=== PATIENT | male | born 1955 | race Caucasian/White ===

== ENCOUNTER 2016-12-16 11:21 | Emergency (ER) | payer OTHER | END 2016-12-16 13:43 | disposition home or self-care (01) | LOC: FER 11:21 | DX: S91.302A Unspecified open wound, left foot, initial encounter (principal); Z79.01 Long term (current) use of anticoagulants; Z89.022 Acquired absence of left finger(s) | CPT/HCPCS: 99283 ==

== ENCOUNTER 2016-12-18 08:41 | Emergency (ER) | payer OTHER | END 2016-12-18 09:34 | disposition home or self-care (01) | LOC: FER 08:41 | DX: M96.830 Postprocedural hemorrhage of a musculoskeletal structure following a musculoskeletal system procedure (principal); I48.91 Unspecified atrial fibrillation; I49.3 Ventricular premature depolarization; Z79.01 Long term (current) use of anticoagulants; Z87.891 Personal history of nicotine dependence; Z95.5 Presence of coronary angioplasty implant and graft; Z89.412 Acquired absence of left great toe | CPT/HCPCS: 99283 ==

== ENCOUNTER 2020-09-30 11:02 | Inpatient (IN) | payer OTHER ==
[~2020-09-30 11:02] MED LIST: KEFLEX500 MG PO
[2020-09-30 13:03] LABS: BASOPHIL 0.2 % (0-2); EOSINOPHIL 0.1 % (0-7); HCT 38.9 % (42.0-52.0); HGB 14.1 g/dl (13.2-18.0); LYMPHOCYTE 13.2 % (15-48); MCH 32.1 pg (25.0-31.0); MCHC 36.2 g/dL (32.0-36.0); MCV 88.6 fL (78.0-100.0); MONOCYTE 4.8 % (0-12); MPV 9.2 fL (6.0-9.5); NEUTROPHIL 80.8 % (41-80); NRBC 0; PLT 185 K/uL (150-400); RBC 4.39 M/uL (4.70-6.00); RDW 12.3 % (11.5-14.0); WBC 8.9 K/uL (4.0-10.5)
[2020-09-30 13:20] LABS: ALBUMIN 3.4 g/dL (3.4-5.0); BILIRUBIN - TOTAL 0.9 mg/dL (0.2-1.0); BUN/CREAT RATIO (CALC) 14.9 RATIO; CREATININE 0.47 mg/dL (0.67-1.17); GLOBULIN (CALCULATION) 3.5 g/dL; POTASSIUM 4.8 mmol/L (3.5-5.1); TOTAL PROTEIN 6.9 g/dL (6.4-8.2)
[2020-09-30 13:24] LABS: BILIRUBIN NEGATIVE (NEGATIVE); BLOOD 1+ Ery/uL (NEGATIVE); CLARITY CLEAR (CLEAR); COLOR YELLOW (YELLOW); GLUCOSE (U) NORMAL (NORMAL); LEUKOCYTES NEGATIVE Leu/uL (NEGATIVE); NITRITE NEGATIVE (NEGATIVE); PROTEIN 2+ mg/dL (NEGATIVE); SPECIFIC GRAVITY 1.015 (1.001-1.030); UROBILINOGEN 0.2 mg/dL (0.2-1.0); pH 5.5 (5.0-9.0)
[2020-09-30 13:41] LABS: BACTERIA TRACE; SPERM PRESENT; URINARY RBC RARE
[2020-09-30] MEDS ORDERED: VITAMIN E400 UNI1 PO (15:12)
[2020-09-30] MEDS ORDERED: XARELTO10 MG PO (15:13)
[2020-09-30] MEDS ORDERED: COREG25 MG PO (15:13)
[2020-09-30] MEDS ORDERED: GABAPENTIN600 MG PO (15:16)
[2020-09-30] MEDS ORDERED: MULTI-VITAMIN1 EACH PO (15:16)
[2020-09-30] MEDS ORDERED: ATORVASTATIN CA40 MG PO (15:17)
[2020-09-30] MEDS ORDERED: DILTIAZEM 12HR120 MG PO (15:17)
--- NOTE | 2020-09-30 16:34 | NUR ---
DR GUZMAN CALLED STATES HE OR JOSE MIGUEL WILL BE IN TO SEE PATIENT, DISCUSS CARDIOLOGY CONSULT WITH HOPSITALIST FOR WEEKEND, PT WILL NEED TO BE OFF XARELTO AND MAY BE SATURDAY UNTIL SURGERY FOR REPAIR DR GUZMAN AND HOSPITALIST ALSO NOTIFIED PATIENT STATES RECOVERING ALCOHOLIC BUT DRINKS "3-4 BEERS A DAY"
[2020-10-02 03:52] LABS: BASOPHIL 0.3 % (0-2); EOSINOPHIL 1.6 % (0-7); HCT 35.2 % (42.0-52.0); HGB 12.2 g/dl (13.2-18.0); LYMPHOCYTE 27.2 % (15-48); MCH 32.1 pg (25.0-31.0); MCHC 34.7 g/dL (32.0-36.0); MCV 92.6 fL (78.0-100.0); MONOCYTE 15.3 % (0-12); MPV 9.3 fL (6.0-9.5); NEUTROPHIL 55.1 % (41-80); NRBC 0; PLT 144 K/uL (150-400); RDW 12.6 % (11.5-14.0); WBC 6.1 K/uL (4.0-10.5)
--- NOTE | 2020-10-02 04:03 | NUR ---
2200 SPOKE TO MICHAEL MILTON ABOUT PATIENTS BLOOD PRESSURE AUTOMATIC WAS 86/60 MANUAL PRESSURE WAS 102/78 PATIENT WAS ALSO IN PAIN AND WAS GIVEN 2 PERCOCET AT THIS TIME. ASKED TO SEE ABOUT HOLDING COREG AND MICHAEL MILTON STATES TO HOLD COREG AT THIS TIME
[2020-10-02 04:09] LABS: BUN/CREAT RATIO (CALC) 23.3 RATIO; CREATININE 0.73 mg/dL (0.67-1.17); POTASSIUM 4.2 mmol/L (3.5-5.1)
[2020-10-03 05:43] LABS: BASOPHIL 0.6 % (0-2); EOSINOPHIL 2.3 % (0-7); HCT 33.4 % (42.0-52.0); HGB 11.4 g/dl (13.2-18.0); LYMPHOCYTE 25.2 % (15-48); MCH 31.9 pg (25.0-31.0); MCHC 34.1 g/dL (32.0-36.0); MCV 93.6 fL (78.0-100.0); MONOCYTE 11.8 % (0-12); MPV 9.6 fL (6.0-9.5); NEUTROPHIL 59.7 % (41-80); NRBC 0; PLT 127 K/uL (150-400); RBC 3.57 M/uL (4.70-6.00); RDW 12.5 % (11.5-14.0); WBC 5.2 K/uL (4.0-10.5)
[2020-10-03 06:07] LABS: BUN/CREAT RATIO (CALC) 24.2 RATIO; CREATININE 0.66 mg/dL (0.67-1.17); MAGNESIUM 1.4 mg/dL (1.8-2.4); POTASSIUM 4.2 mmol/L (3.5-5.1)
[2020-10-03 08:15] LABS: INR 1.3 (0.9-1.2); PROTHROMBIN TIME 15.4 SECONDS (11.4-13.6)
[2020-10-03 08:16] LABS: PTT 37.7 SECONDS (22.2-34.7)
[2020-10-03 10:06] LABS: BILIRUBIN NEGATIVE (NEGATIVE); BLOOD NEGATIVE Ery/uL (NEGATIVE); CLARITY CLEAR (CLEAR); COLOR YELLOW (YELLOW); GLUCOSE (U) NORMAL (NORMAL); LEUKOCYTES NEGATIVE Leu/uL (NEGATIVE); NITRITE NEGATIVE (NEGATIVE); PROTEIN TRACE (LOW) mg/dL (NEGATIVE); UROBILINOGEN 0.2 mg/dL (0.2-1.0)
--- NOTE | 2020-10-03 15:31 | NUR ---
PT LIVES WITH SPOUSE; ASSIST AT THIS TIME; PLEASE ADVISE OF DISCHARGE NEEDS;
--- NOTE | 2020-10-03 15:52 | NUR ---
MET WITH PT AND SPOUSE. HE CHOSE [facility] FOR PT./OT AND NURSING ASSESSMENT. AFFLIATIONS EXPLAINED. PT. HAS ALETHA CISNEROS, 09/26.
[2020-10-04 05:56] LABS: BASOPHIL 0 % (0-2); EOSINOPHIL 0 % (0-7); HCT 30.3 % (42.0-52.0); HGB 10.2 g/dl (13.2-18.0); LYMPHOCYTE 8.3 % (15-48); MCH 31.8 pg (25.0-31.0); MCHC 33.7 g/dL (32.0-36.0); MCV 94.4 fL (78.0-100.0); MONOCYTE 10.2 % (0-12); MPV 9.7 fL (6.0-9.5); NRBC 0; PLT 132 K/uL (150-400); RBC 3.21 M/uL (4.70-6.00); RDW 12.4 % (11.5-14.0); WBC 7.5 K/uL (4.0-10.5)
[2020-10-04 06:27] LABS: BUN/CREAT RATIO (CALC) 29.4 RATIO; CREATININE 0.51 mg/dL (0.67-1.17); POTASSIUM 4.4 mmol/L (3.5-5.1)
[2020-10-05 05:45] LABS: BASOPHIL 0.2 % (0-2); HCT 27.6 % (42.0-52.0); HGB 9.5 g/dl (13.2-18.0); LYMPHOCYTE 21.8 % (15-48); MCH 32.5 pg (25.0-31.0); MCHC 34.4 g/dL (32.0-36.0); MCV 94.5 fL (78.0-100.0); MONOCYTE 16.4 % (0-12); MPV 9.8 fL (6.0-9.5); NEUTROPHIL 60.4 % (41-80); NRBC 0; PLT 123 K/uL (150-400); RBC 2.92 M/uL (4.70-6.00); RDW 12.5 % (11.5-14.0)
[2020-10-05 06:01] LABS: BUN/CREAT RATIO (CALC) 32.1 RATIO; CREATININE 0.56 mg/dL (0.67-1.17); MAGNESIUM 1.4 mg/dL (1.8-2.4); POTASSIUM 4.4 mmol/L (3.5-5.1)
[2020-10-05] MEDS ORDERED: MAG-OXIDE 400M400 MG PO (09:19)
[2020-10-05] MEDS ORDERED: PANTOPRAZOLE SO40 MG PO (09:19)
[2020-10-05] MEDS ORDERED: FEOSOL325 MG PO (09:19)
[2020-10-05] MEDS ORDERED: OXYCODONE-ACET1 EAC1 PO (09:19)
== END 2020-10-05 12:00 | disposition home health service (06) | DRG 522 ==
LOC: FER 11:02 → FMS 13:01
PROVIDERS: Emergency Medicine; Legal Medicine; Nurse Practitioner Adult Health; ADMIT Internal Medicine
PROC: 0SRB04A Replacement of Left Hip Joint with Ceramic on Polyethylene Synthetic Substitute, Uncemented, Open Approach (ICD-10-PCS; principal; 2020-10-03 10:30)
DX: S72.012A Unspecified intracapsular fracture of left femur, initial encounter for closed fracture (principal); I48.20 Chronic atrial fibrillation, unspecified; E87.1 Hypo-osmolality and hyponatremia; D62 Acute posthemorrhagic anemia; W01.0XXA Fall on same level from slipping, tripping and stumbling without subsequent striking against object, initial encounter; Y92.008 Other place in unspecified non-institutional (private) residence as the place of occurrence of the external cause; Z79.01 Long term (current) use of anticoagulants; F10.10 Alcohol abuse, uncomplicated; G62.9 Polyneuropathy, unspecified; I73.9 Peripheral vascular disease, unspecified; J44.9 Chronic obstructive pulmonary disease, unspecified; I10 Essential (primary) hypertension; E83.42 Hypomagnesemia; K21.9 Gastro-esophageal reflux disease without esophagitis; F17.210 Nicotine dependence, cigarettes, uncomplicated; Z89.422 Acquired absence of other left toe(s); Z89.421 Acquired absence of other right toe(s); Z79.899 Other long term (current) drug therapy; Z20.822 Contact with and (suspected) exposure to COVID-19
CPT/HCPCS: 36415; 71045; 73501; 73502; 73700; 76000; 80048; 80053; 81001; 81003; 83735; 85025; 85610; 85730; 86850; 86900; 86901; 88305; 88342; 93005; 94010; 94762; 97110; 97116; 97162; 97166; 97530-GP; 97535; C1713; C1776; J0171; J0697; J1100; J1170; J1885; J2250; J2270; J2405; J2704; J2710; J2795; J3010; J3370; J7050; J7120; U0002

== ENCOUNTER 2021-11-24 18:49 | Emergency (ER) | payer OTHER ==
[~2021-11-24 18:49] MED LIST changes: +ATORVASTATIN CA40 MG PO; +COREG25 MG PO; +DILTIAZEM 12HR120 MG PO; +FEOSOL325 MG PO; +GABAPENTIN600 MG PO; +MAG-OXIDE 400M400 MG PO; +MULTI-VITAMIN1 EACH PO; +OXYCODONE-ACET1 EAC1 PO; +PANTOPRAZOLE SO40 MG PO; +VITAMIN E400 UNI1 PO; +XARELTO10 MG PO
[2021-11-24 19:51] LABS: BASOPHIL 0.7 % (0-2); HCT 41.4 % (42.0-52.0); HGB 14.5 g/dl (13.2-18.0); LYMPHOCYTE 29.2 % (15-48); MCH 31.5 pg (25.0-31.0); MCV 89.8 fL (78.0-100.0); MONOCYTE 11.7 % (0-12); MPV 8.6 fL (6.0-9.5); NEUTROPHIL 56.5 % (41-80); NRBC 0; PLT 173 K/uL (150-400); RBC 4.61 M/uL (4.70-6.00); RDW 13.5 % (11.5-14.0); WBC 5.8 K/uL (4.0-10.5)
[2021-11-24 20:08] LABS: BUN/CREAT RATIO (CALC) 13.2 RATIO; CREATININE 0.53 mg/dL (0.67-1.17); POTASSIUM 3.6 mmol/L (3.5-5.1)
== END 2021-11-24 21:35 | disposition home or self-care (01) ==
LOC: FER 18:49
PROVIDERS: Nurse Practitioner Family
DX: R04.0 Epistaxis (principal); I10 Essential (primary) hypertension; Z28.310 Unvaccinated for COVID-19
CPT/HCPCS: 36415; 80048; 85025; 99283

== ENCOUNTER 2022-02-02 10:44 | Day surgery (SDCO) | payer OTHER ==
[~2022-02-02] VITALS: Ht 182.9 cm; Wt 70.0 kg
[2022-02-02 14:03] LABS: BASOPHIL 0.3 % (0-2); EOSINOPHIL 0.3 % (0-7); HCT 35.2 % (42.0-52.0); LYMPHOCYTE 19.2 % (15-48); MCH 32.7 pg (25.0-31.0); MCHC 36.9 g/dL (32.0-36.0); MCV 88.7 fL (78.0-100.0); MONOCYTE 9.6 % (0-12); MPV 8.7 fL (6.0-9.5); NEUTROPHIL 69.5 % (41-80); NRBC 0; RBC 3.97 M/uL (4.70-6.00); RDW 12.6 % (11.5-14.0); WBC 3.6 K/uL (4.0-10.5)
[2022-02-02 14:35] LABS: PLT 98 K/uL (150-400)
[2022-02-02 14:58] LABS: CREATININE 0.46 mg/dL (0.67-1.17); POTASSIUM 3.8 mmol/L (3.5-5.1)
[2022-02-02 16:47] LABS: CORONAVIRUS 2019 SARS-COV-2 NEGATIVE (NEGATIVE); INFLUENZA A NAA NEGATIVE (NEGATIVE)
[2022-02-02 16:53] LABS: IRON % SATURATION 12.3 %SAT (20-50)
--- NOTE | 2022-02-02 17:46 | NUR ---
RECEIVED FROM ER VIA WHEELCHAIR FROM ER. ORIENTED TO ROOM
[2022-02-02 22:32] LABS: ALBUMIN 2.1 g/dL (3.4-5.0); BILIRUBIN - DIRECT 0.2 mg/dL (0.00-0.20); BILIRUBIN - TOTAL 0.4 mg/dL (0.2-1.0); BUN/CREAT RATIO (CALC) 14.8 RATIO; CREATININE 0.54 mg/dL (0.67-1.17); POTASSIUM 3.6 mmol/L (3.5-5.1); TOTAL PROTEIN 5.1 g/dL (6.4-8.2)
[2022-02-03 06:10] LABS: BASOPHIL 0.6 % (0-2); EOSINOPHIL 0.3 % (0-7); HCT 35.3 % (42.0-52.0); HGB 12.7 g/dl (13.2-18.0); LYMPHOCYTE 21.2 % (15-48); MCH 32.6 pg (25.0-31.0); MCV 90.5 fL (78.0-100.0); MONOCYTE 13.2 % (0-12); MPV 9.5 fL (6.0-9.5); NEUTROPHIL 63.8 % (41-80); NRBC 0; RDW 12.8 % (11.5-14.0); WBC 3.5 K/uL (4.0-10.5)
[2022-02-03 06:12] LABS: PLT 78 K/uL (150-400)
[2022-02-03 06:25] LABS: INR 1.28 (0.9-1.2); PROTHROMBIN TIME 15.6 SECONDS (11.9-13.9)
[2022-02-03 06:33] LABS: ALBUMIN 2.2 g/dL (3.4-5.0); BILIRUBIN - DIRECT 0.2 mg/dL (0.00-0.20); BILIRUBIN - TOTAL 0.5 mg/dL (0.2-1.0); BUN/CREAT RATIO (CALC) 12.7 RATIO; CREATININE 0.55 mg/dL (0.67-1.17); GLOBULIN (CALCULATION) 3.2 g/dL; POTASSIUM 3.6 mmol/L (3.5-5.1); TOTAL PROTEIN 5.4 g/dL (6.4-8.2)
[2022-02-03] MEDS ORDERED: MAG-OXIDE 400M400 MG PO (07:32)
[2022-02-03] MEDS ORDERED: VITAMIN B-1100 M1 PO (07:32)
[2022-02-03] MEDS ORDERED: FOLIC ACID1 MG PO (07:32)
--- NOTE | 2022-02-03 11:04 | NUR ---
PER DR MERCADO HE IS ANTICIPATING D/C PT ON 02/03/22.
--- NOTE | 2022-02-03 15:29 | NUR ---
PATIENT DISCHARGED BY WHEELCHAIR. IV DCD. VERBALIZED AN UNDERSTANDING OF DISCHARGE INSTRUCTIONS AND WILL CALL AND MAKE AN APPOINTMENT WITH DR. JUAREZ.
--- NOTE | 2022-02-05 08:48 | NUR ---
PT DISCHARGED BEFORE BEING EVALUATED BY WOUND CARE.
== END 2022-02-03 15:30 | disposition home or self-care (01) ==
LOC: FER 10:44 → FMS 15:35
PROVIDERS: Nurse Practitioner Acute Care; Nurse Practitioner Family; ADMIT Family Medicine
DX: E87.1 Hypo-osmolality and hyponatremia (principal); D61.818 Other pancytopenia; F10.10 Alcohol abuse, uncomplicated; I73.9 Peripheral vascular disease, unspecified; I87.8 Other specified disorders of veins; S81.802A Unspecified open wound, left lower leg, initial encounter; I48.20 Chronic atrial fibrillation, unspecified; J44.9 Chronic obstructive pulmonary disease, unspecified; I10 Essential (primary) hypertension; R73.9 Hyperglycemia, unspecified; R77.0 Abnormality of albumin; F17.210 Nicotine dependence, cigarettes, uncomplicated; Z20.822 Contact with and (suspected) exposure to COVID-19; Z79.01 Long term (current) use of anticoagulants; Z79.899 Other long term (current) drug therapy
CPT/HCPCS: 36415; 80048; 80076; 82607; 83540; 83550; 83880; 85025; 85610; 93005; 94010; G0378; G0480; J7030; U0002